=== PATIENT | male | born 1970 | race Two or more races ===

== ENCOUNTER 2022-02-19 15:34 | Emergency (ER) | payer OTHER ==
[~2022-02-19] VITALS: Ht 170.2 cm; Wt 86.2 kg
[2022-02-19 15:59] VITALS: BP 148/89
--- NOTE | 2022-02-19 17:00 | NUR ---
C.O RIGHT HAND PAIN X5DAYS, PER PT HE TRIPPED AND FELL ON HIS RIGHT HAND, PER PT HE HAD A PREVIOUS ORIF ON AFFECTED EXTREMITY NKA PMH: BRONWYNIES
[2022-02-19] MEDS ORDERED: IBUP-1842 PO (17:38)
== END 2022-02-19 17:48 | disposition home or self-care (01) ==
LOC: MED 15:34
DX: S63.501A Unspecified sprain of right wrist, initial encounter (principal); Z79.899 Other long term (current) drug therapy; Z98.890 Other specified postprocedural states; W01.0XXA Fall on same level from slipping, tripping and stumbling without subsequent striking against object, initial encounter; Y93.89 Activity, other specified; Y92.89 Other specified places as the place of occurrence of the external cause; Y99.8 Other external cause status
CPT/HCPCS: 73110; 73130; 99284

== ENCOUNTER 2022-02-23 16:10 | Emergency (ER) | payer OTHER ==
[~2022-02-23] VITALS: Ht 182.9 cm; Wt 83.9 kg
[~2022-02-23 16:10] MED LIST: IBUP-1842 PO
[2022-02-23 16:20] VITALS: BP 110/81
--- NOTE | 2022-02-23 17:40 | NUR ---
PATIENT CONTIUING TO ATTEMPT TO PUSH STAFF AND AND WALK OUT, PATIENT WITH UNSTEADY GAIT. PATIENT ASSISTED INTO BED 7, DR. HEARN AWARE OF PATIENT STATUS.
[2022-02-23] MEDS ORDERED: HALOPERIDOL IM 5 MG/ML VIAL ONE (17:43)
[2022-02-23] MEDS: HALOPERIDOL IM 5 MG/ML VIAL IM ONE (17:47)
--- NOTE | 2022-02-23 18:04 | NUR ---
51 y/o male biba from [facility] [place], pt was found by ex who called 911, found him in the bushes/planters outside. per exwife, amr states he left his house to buy a car. pt is a&ox2 with slurred speech, states he drank tequila, unknown amount. pt able to stand and pivot with assistance, denies pain at this time pmh: heavy etoh use nka med: denies
--- NOTE | 2022-02-23 18:11 | NUR ---
PT TAKEN TO CT
--- NOTE | 2022-02-23 18:26 | NUR ---
PT BACK FROM CT SCAN.
--- NOTE | 2022-02-23 19:10 | NUR ---
LAB AT BEDSIDE.
--- NOTE | 2022-02-23 19:22 | NUR ---
GAVE REPORT TO JACINTO KERN.
--- NOTE | 2022-02-23 20:00 | NUR ---
RESTRAINTS HAVE BEEN REMOVED. PT IS ABLE TO UNDERSTAND HE MUST REMAIN IN BED. A WARM BLANKET HAS BEEN PROVIDED. PT REMAINS ON MONITOR AT THIS TIME.
[2022-02-23 20:15] LABS: BASOPHILS % (AUTO) 0.3 % (0.0-2.0); EOSINOPHILS # (AUTO) 0.1 K/uL (0-0.4); HEMATOCRIT 49.7 % (36-52); LYMPHOCYTES # (AUTO) 1.9 K/uL (2.0-11.5); LYMPHOCYTES % (AUTO) 32.6 % (20.5-51.1); MEAN CORPUSCULAR HEMOGLOBIN 31 pg (27-31); MEAN CORPUSCULAR HGB CONC 34 g/dL (33-37); MONOCYTES # (AUTO) 0.2 K/uL (0.8-1.0); MONOCYTES % (AUTO) 3.4 % (1.7-9.3); NEUTROPHILS # (AUTO) 3.6 K/uL (1.8-7.7); NEUTROPHILS % (AUTO) 61.7 % (42.2-75.2); PLATELET COUNT (AUTO) 225 K/uL (140-450); RED BLOOD CELL COUNT(AUTO) 5.53 MIL/uL (4.20-6.10); RED CELL DISTRIBUTION WIDTH 13.1 % (11.6-13.7); WHITE BLOOD COUNT (AUTO) 5.8 K/uL (4.8-10.8)
[2022-02-23 20:54] LABS: ALBUMIN 4.3 g/dL (3.4-5.0); ANION GAP 15.4 (8-16); CARBON DIOXIDE 28.1 mmol/L (21-32); POTASSIUM 3.5 mmol/L (3.5-5.1); TOTAL BILIRUBIN 1.8 mg/dL (0.0-1.0)
--- NOTE | 2022-02-23 23:04 | NUR ---
IS HERE FOR MANAGER LSW
[2022-02-23 23:25] VITALS: BP 110/72
--- NOTE | 2022-02-23 23:27 | NUR ---
Patient discharged with v/s stable. Written and verbal after care instructions given and explained. Patient verbalized understanding. Wheel Chair Assisted with to home. All questions addressed prior to discharge. Advised to follow up with PMD. Spouse aware of pt. condition. pt was safely assisted into car.
== END 2022-02-23 17:40 | disposition home or self-care (01) ==
LOC: MED 16:10
DX: F10.129 Alcohol abuse with intoxication, unspecified (principal); R41.82 Altered mental status, unspecified; Z79.899 Other long term (current) drug therapy
CPT/HCPCS: 36415; 70450; 72125; 80053; 81002; 85025; 96372; 99284; G0482; J1630